=== PATIENT | female | born 1970 ===

== ENCOUNTER 2018-07-19 06:05 | Inpatient (IN) | payer MEDICAID ==
[2018-07-08 08:55] VITALS: BMI 31.6
[2018-07-19] MEDS ORDERED: Midazolam 2 MG/2 ML VIAL ONE (07:27)
[2018-07-19] MEDS ORDERED: Propofol 10 mg/ml Inj (20 ML) ONE (07:27)
[2018-07-19] MEDS ORDERED: Lidocaine Hydrochloride 20 ML INJ ONE (07:35)
[2018-07-19] MEDS ORDERED: Bupivacaine 0.25% 20 ML INJ IJ ONE (07:36)
[2018-07-19] MEDS: cefOXitin IV 2 gm in Dextrose 2 GM/50 ML BAG IVPB ONE ×2 (08:10→08:41)
[2018-07-19] MEDS ORDERED: ePHEDrine 50 mg/ml Inj ONE (09:05)
[2018-07-19] MEDS ORDERED: Rocuronium 10 mg/ml (5 ml) ONE ×2 (09:05→09:09)
[2018-07-19] MEDS ORDERED: Phenylephrine 10 mg/ml Inj ONE (09:05)
[2018-07-19] MEDS ORDERED: Succinylcholine Chloride 20 mg/ml Syr (5 ml) IV ONE (09:05)
--- NOTE | 2018-07-19 12:13 | PCM.SURG1 ---
Surgeon's Initial Post Op Note - Surgeon's Notes Surgeon: Ean Maintenance Mechanic Elevators: Garland PGY4 Type of Anesthesia: General Endo, Local Pre-Operative Diagnosis: Hiatal hernia Operative Findings: Prior gastric sleeve, hiatal hernia Post-Operative Diagnosis: same Operation Performed: laparoscopic hiatal hernia repair w. mesh pledgets Specimen/Specimens Removed: none Estimated Blood Loss: EBL {In ML}: 300 Blood Products Given: N/A Drains Used: Nghia Post-Op Condition: Good Date of Surgery/Procedure: 07/19/18 Time of Surgery/Procedure: 12:13
[2018-07-19] MEDS ORDERED: Lactated Ringer's 1,000 ML IV SCH (12:15)
[2018-07-19] MEDS: HYDROmorphone 0.5 mg/0.5 ml ISec IVP PRN ×5 (12:16→19:22)
[2018-07-19] MEDS: (Novolin R) Insulin Human Regular 100 units/ml vial SC SCH ×2 (17:12→23:23)
[2018-07-19] MEDS: Lactated Ringer's 1,000 ML IV SCH (19:24)
--- NOTE | 2018-07-19 21:32 | PCM.OP ---
Operative Report - Operative Report Date of Surgery/Procedure: 07/19/18 Time of Surgery/Procedure: 08:00 Surgeon: Kellie Mckoy MD Endocrinology Specialist: Luis Haque DO (PGY4 resident) Anesthesia/Sedation: General endotracheal; 1% lidocaine + 0.25% Marcain mix local anesthesia Pre-Operative Diagnosis: recurrent hiatal hernia. s/p laparoscopic sleeve gastrectomy and hiatal hernia repair. Morbid obesity. BMI 32 Post-Operative Diagnosis: recurrent hiatal hernia with anterior recurrence. s/ p laparoscopic sleeve gastrectomy and hiatal hernia repair. Morbid obesity. BMI 32 Indication for Surgery: This is a very nice woman who underwent prior laparoscopic sleeve gastrectomy and concomitant hiatal hernia repair at an OSH couple years ago. She has had dysphagia and post-prandial nausea vomiting for several months. Her work-up revealed a recurrent hiatal hernia consistent with her symptoms. Details of the HPI in clinical chart. The risks of surgery that includes leaks, bleeding, infections or injury, recurrence and need for open surgery have all been explained, and informed consent obtained Operative Findings: Anterior recurrence of hiatal hernia. No blow-out of previous posterior closure noted. Left mediastal hernia sac intimately adherent to left pleura and left pleura entered without any injury to left lung or hemodynamic changes. Large liver adherent to omentum overlying site of previous hiatal hernia repair and to superior aspect of both crura. Intact sleeve gastrectomy of normal size Procedure/Operation Description: PROCEDURE PERFORMED: 1. Laparoscopic, recurrent hiatal hernia repair with mesh pledgets. 2. Esophagogastroduodenoscopy. DETAILS OF PROCEDURE: The patient was brought to the operating room, placed in the supine position. 2g cefoxitin given within 30 minutes prior to incision. Sequential compression stockings placed for DVT prophylaxis. Small caliber rivas catheter placed. Abdominal hair removal with electrical clippers. Upper and lower body warming blankets placed to maintain body temperature. All pressure points padded. Arms were in neutral position at 80-degrees from the torso and all pressure points were padded. All trocar sites were preanesthetized with local anesthesia listed above. A #11 blade was used to make all skin incisions. A time-out was performed prior to incision. At 15 cm distal to the xiphoid along the midline, we made a transverse incision and entered the abdomen using a direct optical viewing device. Abdomen was insufflated to 15 mmHg using CO2. We placed a 5 mm trocar in the left subcostal area under direct visualization, and another 5 mm trocar on the right side of the abdomen laterally under direct visualization. Another 10 mm trocar was placed in the left mid subcostal region under vision. A small 5mm skin incison was made beneath the xiphoid and a nathoson liver retractor inserted and plaed under left liver lobe to expose hiatus. Omental attachments to liver and crura taken down with ligasure to expose borders of hiatus. We focused our attention to the hiatus. Short gastric vessels had previously been taken down during her sleeve gastrectomy. Omental attachements to the lateral and proximal stomach were taken down and traced to the base of the left ang. We then used blunt dissection to free up the entire hiatus so that the esophagus was encircled within the mady drain. The esophagus was dissected well into the mediastinum and freed circumferentially. Anterior hernia sac was reduced with hernia contents. The left mediastinum portion of hernia sac was adherent to the left pleura and despite meticulous dissection, the left pleura cavity was entered, without injury to the lung or any hemodynamic instability. Upper endoscopy was performed and used to confirm 3cm of intra-abdominal esophagus distal to GE junction. We used the gastroscope emersion test to make sure there were no leaks. Simple air insufflation opened the lower esophageal sphincter. We then closed the posterior hiatus with two, 0-silk sutures, and closed the anterior crura with another single 0-silk suture. Both sutures were with bioabsorbable pledgets. The hiatal closure was further reinforced with 0- barbed suture and came together without tension. Once this was done, we passed the gastroscope down the esophagus. The scope passed readily without any problems. There was no injury to the esophagus, air leaks, or bleeding. We evacuated all the air and removed the gastroscope under direct visualization. At this point, the mady drain was removed and liver retractor taken down. We scanned the abdominal cavity, which did not demonstrate any other abnormalities. There was a small 1-2cm superficial laceration of the edge of right lover lobe which was cauterized and hemostatic. There was no other bleeding. A 19Fr round diego drain was then advanced into the left anterior mediastinum through the hiatus under direct vision and brought out through the left lateral 5mm port site. We removed all the trocars under direct visualization. The pneumoperitoneum was evacuated. The skin incisions were closed using 4-0. Monocryl sutures in running subcuticular fashion. Dermabond glue was applied. The patient tolerated the procedure well and was extubated on the operating room table. The patient was transferred to the recovery room in stable condition. All sponge and instrument counts were correct. I was present for the entirety of the operation. Estimated Blood Loss: 200mL Complications: none Specimen: none Discharge & Condition: above
[2018-07-19] MEDS ORDERED: Lidocaine 5% Patch TD SCH (21:39)
[2018-07-19] MEDS: Lidocaine 5% Patch TD SCH (22:04)
[2018-07-20] MEDS: Lactated Ringer's 1,000 ML IV SCH ×4 (01:15→20:00)
[2018-07-20] MEDS: HYDROmorphone 0.5 mg/0.5 ml ISec IVP PRN ×4 (04:40→21:59)
[2018-07-20 06:52] LABS: BLOOD UREA NITROGEN 17 mg/dL (7-17); CALCIUM 8.6 mg/dl (8.6-10.4); GFR NON-AFRICAN AMERICAN > 60
[2018-07-20 06:54] LABS: BASO % 0.2 % (0.0-2.0); HEMOGLOBIN 9.7 g/dL (11.0-16.0); LYMPH # 1.3 K/uL (1.0-4.3); MEAN CELL VOLUME 85.1 fL (81.0-99.0); MEAN CORPUSCULAR HEMOGLOBIN 28.5 pg (27.0-31.0); MEAN CORPUSCULAR HGB CONC 33.5 g/dL (33.0-37.0); MEAN PLATELET VOLUME 8.2 fL (7.2-11.7); MONO # 1.2 K/uL (0.0-0.8); MONO % 6.3 % (0.0-10.0); NEUT # 16.3 K/uL (1.8-7.0); NEUT % 86.5 % (50.0-75.0); PLATELET COUNT 319 K/uL (130-400); RED CELL DISTRIBUTION WIDTH 14.8 % (11.5-14.5); WHITE BLOOD COUNT 18.8 K/uL (4.8-10.8)
[2018-07-20] MEDS ORDERED: Lactated Ringer's 500 ML IV ONE (07:00)
[2018-07-20] MEDS: (Novolin R) Insulin Human Regular 100 units/ml vial SC SCH ×4 (07:51→22:00)
[2018-07-20 08:24] LABS: BANDS 8 % (0-2); LYMPHOCYTE 5 % (20-40); MONOCYTE 5 % (0-10); NEUTROPHIL 82 % (50-75); PLATELET ESTIMATE NORMAL (NORMAL); TOTAL CELLS COUNTED 100
[2018-07-20] MEDS: Enoxaparin 40 mg Syringe SC SCH (09:16)
[2018-07-20] MEDS ORDERED: Lidocaine 5% Patch TD SCH (10:00)
[2018-07-20] MEDS ORDERED: Iohexol 240 200 ML ONE (10:08)
[2018-07-20] MEDS ORDERED: HYDROmorphone 0.5 mg/0.5 ml ISec IVP STA (13:43)
[2018-07-20] MEDS ORDERED: Albuterol-Ipratrop 3 mg / 0.5 (3 ml) UD INH PRN (14:51)
--- NOTE | 2018-07-20 14:59 | CP.PCM.PN ---
<Earnest Haque - Last Filed: 07/20/18 14:59> Subjective - Date & Time of Evaluation Date of Evaluation: 07/20/18 Time of Evaluation: 14:56 - Subjective Subjective: Surgery: Dr. Mckoy Pt seen and examined. No acute events overnight. has complaints of pain. Nausea , no vomiting. Objective - Vital Signs/Intake and Output Vital Signs (last 24 hours): Temp Pulse Resp BP Pulse Ox 98.4 F 74 18 134/69 99 07/20/18 08:15 07/20/18 08:48 07/20/18 08:15 07/20/18 08:15 07/20/18 08:15 Intake and Output: 07/20/18 07/20/18 06:59 18:59 Intake Total 2000 Output Total 588 Balance 1412 - Medications Medications: Current Medications Albuterol/Ipratropium (Duoneb 3 Mg/0.5 Mg (3 Ml) Ud) 3 ml INH RQ4 PRN PRN Reason: Shortness of Breath Diphenhydramine HCl (Benadryl) 25 mg IVP HS PRN PRN Reason: Insomnia Enoxaparin Sodium (Lovenox) 40 mg SC DAILY [facility] Last Admin: 07/20/18 09:16 Dose: 40 mg Famotidine (Pepcid) 40 mg IVP DAILY [facility] Last Admin: 07/20/18 09:16 Dose: 40 mg Hydromorphone/Sodium Chloride (Dilaudid Attorney General) 6 mg IV Q4H PRN; Protocol PRN Reason: Pain, moderate (4-7) Lactated Ringer's (Lactated Ringer's) 1,000 mls @ 125 mls/hr IV .Q8H [facility] Last Admin: 07/20/18 13:56 Dose: Not Given Piperacillin Sod/Tazobactam Sod (Zosyn 3.375 Gm Iv Premix) 3.375 gm in 50 mls @ 100 mls/hr IVPB Q6H [facility] PRN Reason: Protocol Stop: 07/21/18 15:01 Insulin Human Regular (Novolin R) 0 unit SC ACHS [facility] PRN Reason: Protocol Last Admin: 07/20/18 11:50 Dose: Not Given Ketorolac Tromethamine (Toradol) 30 mg IVP Q6 [facility] Stop: 07/21/18 12:01 Lidocaine (Lidoderm) 1 ea TD Q24H [facility] Last Admin: 07/19/18 22:04 Dose: 1 ea Metoclopramide HCl (Reglan) 10 mg IVP Q6H PRN PRN Reason: Nausea/Vomiting Ondansetron HCl (Zofran Inj) 4 mg IVP Q6H [facility] Last Admin: 07/20/18 12:16 Dose: 4 mg - Labs Labs: 07/20/18 06:34 07/20/18 06:34 - Constitutional Appears: Non-toxic, No Acute Distress - Head Exam Head Exam: ATRAUMATIC, NORMOCEPHALIC - Eye Exam Eye Exam: EOMI - ENT Exam ENT Exam: Mucous Membranes Moist - Neck Exam Neck Exam: Full ROM - Respiratory Exam Respiratory Exam: NORMAL BREATHING PATTERN. absent: Accessory Muscle Use, Respiratory Distress - GI/Abdominal Exam GI & Abdominal Exam: Soft, Tenderness (jody-incisional ). 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 -Nghia: 13cc/24hr, serosang, drain repositioned, Repeat CXR in AM -Will start CLD, ADAT to FLD, pt will need FLD for 2 weeks upon D/C -encourage OOB / Ambulation / IS use / PT -c/w GI/DVT ppx -d/w attending [facility] PGY4 <Kellie Mckoy - Last Filed: 07/20/18 17:02> Objective - Vital Signs/Intake and Output Vital Signs (last 24 hours): Temp Pulse Resp BP Pulse Ox 98.4 F 80 20 107/71 96 07/20/18 15:00 07/20/18 15:00 07/20/18 15:00 07/20/18 15:00 07/20/18 15:00 Intake and Output: 07/20/18 07/20/18 06:59 18:59 Intake Total 2000 1350 Output Total 588 15 Balance 1432 1335 - Medications Medications: Current Medications Albuterol/Ipratropium (Duoneb 3 Mg/0.5 Mg (3 Ml) Ud) 3 ml INH RQ4 PRN PRN Reason: Shortness of Breath Diphenhydramine HCl (Benadryl) 25 mg IVP HS PRN PRN Reason: Insomnia Enoxaparin Sodium (Lovenox) 40 mg SC DAILY [facility] Last Admin: 07/20/18 09:16 Dose: 40 mg Famotidine (Pepcid) 40 mg IVP DAILY [facility] Last Admin: 07/20/18 09:16 Dose: 40 mg Hydromorphone HCl (Dilaudid) 0.5 mg IVP Q2H PRN PRN Reason: Pain, moderate (4-7) Lactated Ringer's (Lactated Ringer's) 1,000 mls @ 125 mls/hr IV .Q8H [facility] Last Admin: 07/20/18 16:45 Dose: 125 mls/hr Piperacillin Sod/Tazobactam Sod (Zosyn 3.375 Gm Iv Premix) 3.375 gm in 50 mls @ 100 mls/hr IVPB Q6H [facility] PRN Reason: Protocol Stop: 07/21/18 16:01 Last Admin: 07/20/18 16:45 Dose: 100 mls/hr Insulin Human Regular (Novolin R) 0 unit SC ACHS [facility] PRN Reason: Protocol Last Admin: 07/20/18 11:50 Dose: Not Given Ketorolac Tromethamine (Toradol) 30 mg IVP Q6 [facility] Stop: 07/21/18 12:01 Lidocaine (Lidoderm) 1 ea TD Q24H [facility] Last Admin: 07/19/18 22:04 Dose: 1 ea Metoclopramide HCl (Reglan) 10 mg IVP Q6H PRN PRN Reason: Nausea/Vomiting Ondansetron HCl (Zofran Inj) 4 mg IVP Q6H [facility] Last Admin: 07/20/18 12:16 Dose: 4 mg - Labs Labs: 07/20/18 06:34 07/20/18 06:34 Assessment and Plan - Assessment and Plan (Free Text) Plan: Seen and examined. Agree with above. UGI contrast study negative. Start CLD. Pain control. Pulmonary toilet. OOB ambulate in henry. Nutrition to see re: post- bariatric diet teaching and full liquid diet on discharge.
--- NOTE | 2018-07-20 15:21 | RAD ---
Date of service: 07/20/2018 HISTORY: Dysphagia. COMPARISON: Comparison made with prior CT scan of the abdomen pelvis dated 06/03/2018. TECHNIQUE: Limited single-contrast esophagram/ GI series performed without Omnipaque 240 water-soluble contrast material. . . FINDINGS: Patient tolerated procedure well. ESOPHAGUS: Esophageal mucosa appeared preserved. No evidence of stricture or mass lesion. HIATAL HERNIA: Postoperative changes of hiatal hernia repair. No evidence of residual hiatal hernia. . No evidence of contrast extravasation seen. GASTROESOPHAGEAL REFLUX: Not demonstrated. Postoperative changes OTHER FINDINGS: Postoperative changes of gastric sleeve again noted IMPRESSION: Postoperative repair of hiatal hernia and postoperative changes of gastric sleeve. No evidence of residual hiatal hernia. No evidence of contrast extravasation
[2018-07-20] MEDS: Piperacill/Tazo 3.375gm in Dex 3.375 GM/50 ML BAG IVPB SCH ×2 (16:45→22:02)
[2018-07-20] MEDS: Lidocaine 5% Patch TD SCH (21:58)
[2018-07-20] MEDS: DiphenhydrAMINE 50 mg/ml Inj IVP PRN (22:00)
[2018-07-21] MEDS: Lactated Ringer's 1,000 ML IV SCH (02:30)
[2018-07-21] MEDS: Piperacill/Tazo 3.375gm in Dex 3.375 GM/50 ML BAG IVPB SCH ×3 (04:44→16:02)
[2018-07-21] MEDS: HYDROmorphone 0.5 mg/0.5 ml ISec IVP PRN (04:59)
--- NOTE | 2018-07-21 07:12 | CP.PCM.PN ---
Subjective - Date & Time of Evaluation Date of Evaluation: 07/21/18 Time of Evaluation: 07:10 - Subjective Subjective: Surgery: Dr. Mckoy Pt seen and examined. She has complaints of incisional pain and head ache. She states that she had increased abd pain following CLD, but denies N/V. She has been ambulating. She has not had flatus/BM. Objective - Vital Signs/Intake and Output Vital Signs (last 24 hours): Temp Pulse Resp BP Pulse Ox 98.5 F 81 20 133/77 99 07/21/18 04:00 07/21/18 04:00 07/21/18 04:00 07/21/18 04:00 07/21/18 04:00 Intake and Output: 07/21/18 07/21/18 06:59 18:59 Intake Total 2074 Output Total Balance 2067 - Medications Medications: Current Medications Acetaminophen (Tylenol 325mg Tab) 650 mg PO Q6 PRN PRN Reason: Headache Albuterol/Ipratropium (Duoneb 3 Mg/0.5 Mg (3 Ml) Ud) 3 ml INH RQ4 PRN PRN Reason: Shortness of Breath Diphenhydramine HCl (Benadryl) 25 mg IVP HS PRN PRN Reason: Insomnia Last Admin: 07/20/18 22:00 Dose: 25 mg Enoxaparin Sodium (Lovenox) 40 mg SC DAILY [facility] Last Admin: 07/20/18 09:16 Dose: 40 mg Hydromorphone HCl (Dilaudid) 0.5 mg IVP Q2H PRN PRN Reason: Pain, moderate (4-7) Last Admin: 07/21/18 04:59 Dose: 0.5 mg Lactated Ringer's (Lactated Ringer's) 1,000 mls @ 125 mls/hr IV .Q8H [facility] Last Admin: 07/21/18 02:30 Dose: 125 mls/hr Piperacillin Sod/Tazobactam Sod (Zosyn 3.375 Gm Iv Premix) 3.375 gm in 50 mls @ 100 mls/hr IVPB Q6H [facility] PRN Reason: Protocol Stop: 07/21/18 16:01 Last Admin: 07/21/18 04:44 Dose: 100 mls/hr Insulin Human Regular (Novolin R) 0 unit SC ACHS [facility] PRN Reason: Protocol Last Admin: 07/20/18 22:00 Dose: Not Given Ketorolac Tromethamine (Toradol) 30 mg IVP Q6 [facility] Stop: 07/21/18 12:01 Last Admin: 07/21/18 06:20 Dose: Not Given Lidocaine (Lidoderm) 1 ea TD Q24H [facility] Last Admin: 07/20/18 21:58 Dose: 1 ea Metoclopramide HCl (Reglan) 10 mg IVP Q6H PRN PRN Reason: Nausea/Vomiting Ondansetron HCl (Zofran Inj) 4 mg IVP Q6H [facility] Last Admin: 07/21/18 06:17 Dose: 4 mg Pantoprazole Sodium (Protonix Ec Tab) 40 mg PO DAILY [facility] - Labs Labs: 07/20/18 06:34 07/20/18 06:34 - Constitutional Appears: Non-toxic, No Acute Distress - Head Exam Head Exam: ATRAUMATIC, NORMOCEPHALIC - Eye Exam Eye Exam: EOMI - ENT Exam ENT Exam: Mucous Membranes Moist - Neck Exam Neck Exam: Full ROM - Respiratory Exam Respiratory Exam: NORMAL BREATHING PATTERN. absent: Accessory Muscle Use, Respiratory Distress - GI/Abdominal Exam GI & Abdominal Exam: Soft, Tenderness (per-incisional). absent: Distended, Firm , Guarding, Rigid, Rebound Additional comments: L diego in place - Extremities Exam Extremities Exam: absent: Calf Tenderness, Pedal Edema - Neurological Exam Neurological Exam: Alert, Oriented x3 Assessment and Plan - Assessment and Plan (Free Text) Assessment: 48F POD#2 Laparoscopic hiatal hernia repair -AM labs/CXR pending, will follow up results -Micheal cortez: 7cc/12hr serosang, will continue to monitor -Will keep on CLD diet for now, will advance to FLD in upcoming days, pt will need FLD for 2 weeks outpt upon D/C -Dietary to see patient this AM, will follow up on recommendations -Tylenol for TOMAS -Encourage OOB/Ambulation/IS use -c/w GI/DVT ppx -will d/w attending Zemitchellitis PGY4
[2018-07-21] MEDS ORDERED: Acetaminophen 650mg/20.3ml solution UD PO PRN (07:22)
[2018-07-21] MEDS: (Novolin R) Insulin Human Regular 100 units/ml vial SC SCH ×4 (08:05→21:33)
[2018-07-21 08:26] LABS: HEMOGLOBIN 9.1 g/dL (11.0-16.0); MEAN CELL VOLUME 85.6 fL (81.0-99.0); MEAN CORPUSCULAR HEMOGLOBIN 28.5 pg (27.0-31.0); MEAN CORPUSCULAR HGB CONC 33.2 g/dL (33.0-37.0); MEAN PLATELET VOLUME 8.6 fL (7.2-11.7); RBC 3.19 Mil/uL (3.80-5.20); RED CELL DISTRIBUTION WIDTH 14.6 % (11.5-14.5)
[2018-07-21 08:50] LABS: BLOOD UREA NITROGEN 13 mg/dL (7-17); CALCIUM 8.4 mg/dl (8.6-10.4); GFR NON-AFRICAN AMERICAN > 60
[2018-07-21] MEDS: Potassium Ch 20mEq in D5-1/2NS 1,000 ML IV SCH ×3 (09:08→22:08)
--- NOTE | 2018-07-21 10:36 | RAD ---
Date of service: 07/21/2018 HISTORY: comparison COMPARISON: No prior. FINDINGS: LUNGS: Poor inspiration with low lung volumes, crowded bronchovascular markings and bibasilar atelectasis with suspected small bilateral effusions right larger than left PLEURA: As above. No pneumothorax apparent. CARDIOVASCULAR: Heart size within range of normal OSSEOUS STRUCTURES: No significant abnormalities. VISUALIZED UPPER ABDOMEN: Normal. OTHER FINDINGS: None. IMPRESSION: Poor inspiration with low lung volumes, crowded bronchovascular markings and bibasilar atelectasis with suspected small bilateral effusions right larger than left
[2018-07-21] MEDS: Enoxaparin 40 mg Syringe SC SCH (10:39)
[2018-07-21] MEDS: Pantoprazole 40 mg EC Tab PO SCH (10:39)
[2018-07-21] MEDS: Oxycodone/Acetaminophen 5/325 mg Tab PO PRN ×2 (19:03→22:38)
[2018-07-21] MEDS: Piperacillin/Tazobact 3.375 GM in Sodium Chloride 100 ML IVPB SCH (19:11)
[2018-07-21] MEDS: Albuterol-Ipratrop 3 mg / 0.5 (3 ml) UD INH SCH (20:34)
[2018-07-21] MEDS: Lidocaine 5% Patch TD SCH (22:01)
[2018-07-21] MEDS: DiphenhydrAMINE 50 mg/ml Inj IVP PRN (22:10)
[2018-07-22] MEDS: Piperacillin/Tazobact 3.375 GM in Sodium Chloride 100 ML IVPB SCH ×4 (00:10→19:35)
[2018-07-22 00:33] VITALS: RESP 20
[2018-07-22] MEDS: Albuterol-Ipratrop 3 mg / 0.5 (3 ml) UD INH SCH ×4 (02:57→19:53)
[2018-07-22] MEDS ORDERED: Albumin Human 25% (12.5 gm/50 ml) IV ONE (06:00)
[2018-07-22] MEDS: (Novolin R) Insulin Human Regular 100 units/ml vial SC SCH ×4 (08:08→22:24)
[2018-07-22 08:13] LABS: HEMOGLOBIN 9.6 g/dL (11.0-16.0); MEAN CELL VOLUME 85.5 fL (81.0-99.0); MEAN CORPUSCULAR HEMOGLOBIN 28.9 pg (27.0-31.0); MEAN CORPUSCULAR HGB CONC 33.8 g/dL (33.0-37.0); MEAN PLATELET VOLUME 8.8 fL (7.2-11.7); RBC 3.31 Mil/uL (3.80-5.20); RED CELL DISTRIBUTION WIDTH 14.7 % (11.5-14.5); WHITE BLOOD COUNT 9.5 K/uL (4.8-10.8)
[2018-07-22 09:10] LABS: ALB/GLOB RATIO 1.1 (1.0-2.1); ALBUMIN 3.6 g/dL (3.5-5.0); BLOOD UREA NITROGEN 8 mg/dL (7-17); CALCIUM 8.7 mg/dl (8.6-10.4); GFR NON-AFRICAN AMERICAN > 60
[2018-07-22 09:26] LABS: AST/SGOT 361 U/L (14-36)
[2018-07-22 09:27] LABS: ALT/SGPT 593 U/L (9-52)
[2018-07-22] MEDS: Pantoprazole 40 mg EC Tab PO SCH (09:40)
--- NOTE | 2018-07-22 10:00 | CP.PCM.PN ---
Subjective - Date & Time of Evaluation Date of Evaluation: 07/22/18 Time of Evaluation: 09:57 - Subjective Subjective: Surgery: Dr. Mckoy Pt seen and examined. Tolerating jello, however liquids cause her pain and nausea, no vomiting. TOMAS is mildly improved. Objective - Vital Signs/Intake and Output Vital Signs (last 24 hours): Temp Pulse Resp BP Pulse Ox 98.7 F 76 20 121/84 96 07/22/18 09:29 07/22/18 09:29 07/22/18 09:29 07/22/18 09:29 07/22/18 09:29 Intake and Output: 07/22/18 07/22/18 06:59 18:59 Intake Total 940 Balance 940 - Medications Medications: Current Medications Albuterol/Ipratropium (Duoneb 3 Mg/0.5 Mg (3 Ml) Ud) 3 ml INH RQ6 [facility] Last Admin: 07/22/18 08:32 Dose: Not Given Diphenhydramine HCl (Benadryl) 25 mg IVP HS PRN PRN Reason: Insomnia Last Admin: 07/21/18 22:10 Dose: 25 mg Potassium Chloride/Dextrose/Sod Cl (Potassium Chl 20 Meq In D5-1/2ns) 1,000 mls @ 100 mls/hr IV .Q10H [facility] Last Admin: 07/21/18 22:08 Dose: 100 mls/hr Piperacillin Sod/Tazobactam (Sod 3.375 gm/ Sodium Chloride) 100 mls @ 200 mls/ hr IVPB Q6H [facility] PRN Reason: Protocol Last Admin: 07/22/18 08:00 Dose: 200 mls/hr Insulin Human Regular (Novolin R) 0 unit SC ACHS [facility] PRN Reason: Protocol Last Admin: 07/22/18 08:08 Dose: Not Given Lidocaine (Lidoderm) 1 ea TD Q24H [facility] Last Admin: 07/21/18 22:01 Dose: 1 ea Metoclopramide HCl (Reglan) 10 mg IVP Q6H PRN PRN Reason: Nausea/Vomiting Last Admin: 07/21/18 08:41 Dose: 10 mg Ondansetron HCl (Zofran Inj) 4 mg IVP Q6H [facility] Last Admin: 07/22/18 06:15 Dose: 4 mg Oxycodone/Acetaminophen (Percocet 5/325 Mg Tab) 2 tab PO Q6H PRN PRN Reason: Pain, moderate (4-7) Stop: 07/24/18 18:36 Pantoprazole Sodium (Protonix Ec Tab) 40 mg PO DAILY [facility] Last Admin: 07/22/18 09:40 Dose: 40 mg - Labs Labs: 07/22/18 08:06 07/22/18 08:06 - Constitutional Appears: Non-toxic, No Acute Distress - Head Exam Head Exam: ATRAUMATIC, NORMOCEPHALIC - Eye Exam Eye Exam: EOMI - ENT Exam ENT Exam: Mucous Membranes Moist - Neck Exam Neck Exam: Full ROM - Respiratory Exam Respiratory Exam: NORMAL BREATHING PATTERN. absent: Accessory Muscle Use, Respiratory Distress - GI/Abdominal Exam GI & Abdominal Exam: Soft. absent: Distended, Firm, Guarding, Tenderness, Rebound Additional comments: Incisions C/D/I, L diego in place - Extremities Exam Extremities Exam: absent: Calf Tenderness, Pedal Edema - Neurological Exam Neurological Exam: Alert, Awake, Oriented x3 Assessment and Plan - Assessment and Plan (Free Text) Assessment: 48F POD#3 Laparoscopic hiatal hernia repair -Diego 4cc/24hr, serosang, continue to monitor -F/U AM CXR -c/w CLD -D/C morphine, percocet for pain -c/w clemente adamson -encourage OOB/ambulation/IS -GI/DVT ppx -d/w attending Zemaitis PGY4
--- NOTE | 2018-07-22 10:07 | RAD ---
Date of service: 07/22/2018 HISTORY: s/p hiatal hernia repair COMPARISON: No prior. TECHNIQUE: Chest PA and lateral FINDINGS: LUNGS: Mild pulmonary venous congestive changes with bilateral lower lobe alveolar-type infiltrates and bilateral effusions. PLEURA: As above. No pneumothorax apparent. CARDIOVASCULAR: Normal. OSSEOUS STRUCTURES: No significant abnormalities. VISUALIZED UPPER ABDOMEN: Normal. OTHER FINDINGS: None. IMPRESSION: Mild pulmonary venous congestive changes with bilateral lower lobe alveolar-type infiltrates and bilateral effusions.
[2018-07-22] MEDS: Oxycodone/Acetaminophen 5/325 mg Tab PO PRN ×2 (11:33→17:34)
[2018-07-22] MEDS: Potassium Ch 20mEq in D5-1/2NS 1,000 ML IV SCH (14:09)
[2018-07-22] MEDS: Lidocaine 5% Patch TD SCH (22:00)
[2018-07-23] MEDS: Oxycodone/Acetaminophen 5/325 mg Tab PO PRN ×3 (00:03→12:27)
[2018-07-23] MEDS: Potassium Ch 20mEq in D5-1/2NS 1,000 ML IV SCH ×3 (01:00→21:59)
[2018-07-23] MEDS: Albuterol-Ipratrop 3 mg / 0.5 (3 ml) UD INH SCH ×4 (01:19→20:16)
[2018-07-23 06:42] LABS: HEMOGLOBIN 8.8 g/dL (11.0-16.0); MEAN CELL VOLUME 85.4 fL (81.0-99.0); MEAN CORPUSCULAR HGB CONC 32.8 g/dL (33.0-37.0); MEAN PLATELET VOLUME 8.5 fL (7.2-11.7); RBC 3.15 Mil/uL (3.80-5.20); RED CELL DISTRIBUTION WIDTH 14.9 % (11.5-14.5); WHITE BLOOD COUNT 7.7 K/uL (4.8-10.8)
[2018-07-23 06:50] LABS: ALB/GLOB RATIO 1.2 (1.0-2.1); ALBUMIN 3.1 g/dL (3.5-5.0); ALT/SGPT 380 U/L (9-52); AST/SGOT 123 U/L (14-36); BLOOD UREA NITROGEN 6 mg/dL (7-17); CALCIUM 7.7 mg/dl (8.6-10.4); GFR NON-AFRICAN AMERICAN > 60
[2018-07-23] MEDS: (Novolin R) Insulin Human Regular 100 units/ml vial SC SCH ×4 (07:31→21:58)
[2018-07-23] MEDS: Pantoprazole 40 mg EC Tab PO SCH (09:41)
--- NOTE | 2018-07-23 12:23 | CP.PCM.PN ---
Subjective - Date & Time of Evaluation Date of Evaluation: 07/23/18 Time of Evaluation: 06:40 - Subjective Subjective: General Surgery progress note for Dr. Mckoy Patient seen and examined at bedside this AM. Reports headache and nausea with the headache, but states that abdominal pain has improved. Is tolerating her CLD and passing gas. Patient had a bowel movement yesterday. Objective - Vital Signs/Intake and Output Vital Signs (last 24 hours): Temp Pulse Resp BP Pulse Ox 98.3 F 61 20 145/86 96 07/23/18 07:50 07/23/18 08:00 07/23/18 07:50 07/23/18 11:32 07/23/18 07:50 Intake and Output: 07/23/18 07/23/18 06:59 18:59 Intake Total 1050 Balance 1050 - Medications Medications: Current Medications Albuterol/Ipratropium (Duoneb 3 Mg/0.5 Mg (3 Ml) Ud) 3 ml INH RQ6 [facility] Last Admin: 07/23/18 08:00 Dose: Not Given Diphenhydramine HCl (Benadryl) 25 mg IVP HS PRN PRN Reason: Insomnia Last Admin: 07/21/18 22:10 Dose: 25 mg Enalapril Maleate (Vasotec) 5 mg PO DAILY [facility] Last Admin: 07/23/18 11:32 Dose: 5 mg Hydrochlorothiazide (Microzide) 12.5 mg PO DAILY [facility] Last Admin: 07/23/18 10:24 Dose: 12.5 mg Potassium Chloride/Dextrose/Sod Cl (Potassium Chl 20 Meq In D5-1/2ns) 1,000 mls @ 100 mls/hr IV .Q10H [facility] Last Admin: 07/23/18 11:32 Dose: 100 mls/hr Insulin Human Regular (Novolin R) 0 unit SC ACHS [facility] PRN Reason: Protocol Last Admin: 07/23/18 11:57 Dose: Not Given Lidocaine (Lidoderm) 1 ea TD Q24H [facility] Last Admin: 07/22/18 22:00 Dose: 1 ea Metoclopramide HCl (Reglan) 10 mg IVP Q6H PRN PRN Reason: Nausea/Vomiting Last Admin: 07/23/18 04:18 Dose: 10 mg Ondansetron HCl (Zofran Inj) 4 mg IVP Q6H [facility] Last Admin: 07/23/18 11:32 Dose: 4 mg Oxycodone/Acetaminophen (Percocet 5/325 Mg Tab) 2 tab PO Q6H PRN PRN Reason: Pain, moderate (4-7) Stop: 07/24/18 18:36 Last Admin: 07/23/18 06:49 Dose: 2 tab Pantoprazole Sodium (Protonix Ec Tab) 40 mg PO DAILY [facility] Last Admin: 07/23/18 09:41 Dose: 40 mg - Labs Labs: 07/23/18 06:30 07/23/18 06:30 - Constitutional Appears: Well, Non-toxic, No Acute Distress - Head Exam Head Exam: ATRAUMATIC, NORMOCEPHALIC - Eye Exam Eye Exam: Normal appearance. absent: Conjunctival injection, Scleral icterus - ENT Exam ENT Exam: Mucous Membranes Moist, Normal Oropharynx - Respiratory Exam Respiratory Exam: NORMAL BREATHING PATTERN. absent: Accessory Muscle Use, Respiratory Distress - Cardiovascular Exam Cardiovascular Exam: RRR - GI/Abdominal Exam GI & Abdominal Exam: Soft, Tenderness (epigastric tenderness to palpation). absent: Distended, Rebound Additional comments: surgical incisions healing well, dressing over drain with no saturation, skin well approximated - Extremities Exam Extremities Exam: absent: Calf Tenderness, Pedal Edema, Tenderness - Neurological Exam Neurological Exam: Alert, Awake, Oriented x3 - Psychiatric Exam Psychiatric exam: Normal Affect, Normal Mood - Skin Skin Exam: Dry, Normal Color, Warm Assessment and Plan - Assessment and Plan (Free Text) Assessment: 48F POD#4 s/p laparoscopic hiatal hernia repair with mesh Plan: Continue to monitor CBC ad CMP and replete electrolytes as needed Monitor intake and output strictly Advance to VTD with no carbonated beverages today--monitor tolerance CRUSHED PO medications ok Encourage ambulation with PT, out of bed to chair daily Per physical therapy evaluation, patient will need home PT as an outpatient-- will discuss with case management Will restart home HTN medications Discussed with Dr. Ean Love, [id number]
[2018-07-23] MEDS ORDERED: oxyCODONE 5 mg Immediate Release Tab PO PRN (12:32)
[2018-07-23] MEDS: oxyCODONE 10 mg Immediate Release Tab PO PRN ×2 (16:11→22:00)
[2018-07-23] MEDS: Lidocaine 5% Patch TD SCH (21:58)
[2018-07-24] MEDS: Albuterol-Ipratrop 3 mg / 0.5 (3 ml) UD INH SCH ×4 (01:31→20:49)
[2018-07-24] MEDS: oxyCODONE 10 mg Immediate Release Tab PO PRN ×2 (03:57→18:06)
[2018-07-24] MEDS: Potassium Ch 20mEq in D5-1/2NS 1,000 ML IV SCH ×3 (06:17→17:35)
[2018-07-24 07:25] LABS: HEMOGLOBIN 9.8 g/dL (11.0-16.0); MEAN CELL VOLUME 85.8 fL (81.0-99.0); MEAN CORPUSCULAR HEMOGLOBIN 28.6 pg (27.0-31.0); MEAN CORPUSCULAR HGB CONC 33.4 g/dL (33.0-37.0); MEAN PLATELET VOLUME 8.1 fL (7.2-11.7); RBC 3.41 Mil/uL (3.80-5.20); RED CELL DISTRIBUTION WIDTH 14.9 % (11.5-14.5); WHITE BLOOD COUNT 8.4 K/uL (4.8-10.8)
[2018-07-24 07:56] LABS: ALB/GLOB RATIO 1.1 (1.0-2.1); ALBUMIN 3.4 g/dL (3.5-5.0); ALT/SGPT 271 U/L (9-52); AST/SGOT 74 U/L (14-36); BLOOD UREA NITROGEN 3 mg/dL (7-17); CALCIUM 8.6 mg/dl (8.6-10.4); GFR NON-AFRICAN AMERICAN > 60
[2018-07-24] MEDS: (Novolin R) Insulin Human Regular 100 units/ml vial SC SCH ×4 (07:56→22:09)
--- NOTE | 2018-07-24 09:04 | CP.PCM.PN ---
Subjective - Date & Time of Evaluation Date of Evaluation: 07/24/18 Time of Evaluation: 09:01 - Subjective Subjective: Surgery: Dr. Mckoy Pt seen and examined. Pt has persistent TOMAS. She reports chest discomfort, SOB, and productive cough. She denies palpitations. She had nausea and 2 episodes of clear emesis overnight. She has worsening epigastric pain with swallowing. She also had blood in her urine this morning. Objective - Vital Signs/Intake and Output Vital Signs (last 24 hours): Temp Pulse Resp BP Pulse Ox 98.7 F 55 L 20 144/86 97 07/24/18 05:13 07/24/18 08:31 07/24/18 05:13 07/24/18 05:13 07/24/18 05:13 Intake and Output: 07/24/18 07/24/18 06:59 18:59 Intake Total 1720 Output Total 600 Balance 1120 - Medications Medications: Current Medications Acetaminophen (Tylenol 325mg Tab) 650 mg PO Q6 PRN PRN Reason: Headache or pain, mild Last Admin: 07/24/18 01:33 Dose: 650 mg Albuterol/Ipratropium (Duoneb 3 Mg/0.5 Mg (3 Ml) Ud) 3 ml INH RQ6 [facility] Last Admin: 07/24/18 08:05 Dose: Not Given Diphenhydramine HCl (Benadryl) 25 mg IVP HS PRN PRN Reason: Insomnia Last Admin: 07/21/18 22:10 Dose: 25 mg Enalapril Maleate (Vasotec) 5 mg PO DAILY [facility] Last Admin: 07/23/18 11:32 Dose: 5 mg Hydrochlorothiazide (Microzide) 12.5 mg PO DAILY [facility] Last Admin: 07/23/18 10:24 Dose: 12.5 mg Potassium Chloride/Dextrose/Sod Cl (Potassium Chl 20 Meq In D5-1/2ns) 1,000 mls @ 100 mls/hr IV .Q10H [facility] Last Admin: 07/24/18 06:17 Dose: 100 mls/hr Insulin Human Regular (Novolin R) 0 unit SC ACHS [facility] PRN Reason: Protocol Last Admin: 07/24/18 07:56 Dose: Not Given Lidocaine (Lidoderm) 1 ea TD Q24H [facility] Last Admin: 07/23/18 21:58 Dose: 1 ea Metoclopramide HCl (Reglan) 10 mg IVP Q6H PRN PRN Reason: Nausea/Vomiting Last Admin: 07/23/18 04:18 Dose: 10 mg Ondansetron HCl (Zofran Inj) 4 mg IVP Q6H [facility] Last Admin: 07/24/18 06:16 Dose: 4 mg Oxycodone HCl (Oxycodone Immediate Release Tab) 10 mg PO Q6 PRN PRN Reason: Pain, moderate (4-7) Last Admin: 07/24/18 03:57 Dose: 10 mg Pantoprazole Sodium (Protonix Ec Tab) 40 mg PO DAILY [facility] Last Admin: 07/23/18 09:41 Dose: 40 mg - Labs Labs: 07/24/18 07:14 07/24/18 07:14 - Constitutional Appears: Non-toxic, Other (uncomfortable) - Head Exam Head Exam: ATRAUMATIC, NORMOCEPHALIC - Eye Exam Eye Exam: EOMI - ENT Exam ENT Exam: Mucous Membranes Moist - Neck Exam Neck Exam: Full ROM - Respiratory Exam Respiratory Exam: NORMAL BREATHING PATTERN. absent: Accessory Muscle Use, Respiratory Distress - GI/Abdominal Exam GI & Abdominal Exam: Soft, Tenderness (jody-incisional). absent: Distended, Firm, Guarding, Rigid, Rebound - Extremities Exam Extremities Exam: absent: Calf Tenderness, Pedal Edema - Neurological Exam Neurological Exam: Alert, Awake, Oriented x3 Assessment and Plan - Assessment and Plan (Free Text) Assessment: 48F POD#5 s/p laparoscopic hiatal hernia repair w. worsening pain -NPO -IVF -CT C/A/P w. PO/IV contrast -UA and culture -Daily labs -Encourage OOB / Ambulation /IS use -GI ppx -d/w attending Zemaitis PGY4
[2018-07-24 11:39] LABS: SQUAMOUS EPITHIAL 1 /hpf (0-5); URINE BACTERIA RARE (<OCC)
[2018-07-24 11:54] LABS: URINE BILIRUBIN NEGATIVE (NEGATIVE); URINE BLOOD 3+ (NEGATIVE); URINE CLARITY Clear (Clear); URINE COLOR Yellow (YELLOW); URINE GLUCOSE (UA) NORMAL (Normal); URINE LEUKOCYTE ESTERASE NEG Leu/uL (Negative); URINE PROTEIN NEGATIVE (NEGATIVE); URINE UROBILINOGEN NORMAL mg/dL (0.2-1.0)
[2018-07-24] MEDS ORDERED: Iohexol 240 (50 ml) PO ONE (12:00)
[2018-07-24] MEDS ORDERED: Iohexol 300 100 ML IJ ONE (13:26)
--- NOTE | 2018-07-24 15:54 | CT ---
Date of service: 07/24/2018 PROCEDURE: CT Chest with contrast (Pulmonary Angiogram) HISTORY: CP COMPARISON: None available. TECHNIQUE: Axial computed tomography images were obtained of the chest in the pulmonary arterial phase of enhancement. Coronal and sagittal reformatted images were created and reviewed. Intravenous contrast dose: Omnipaque 300, 100 cc. Radiation dose: Total exam DLP = 435.96 mGy-cm. This CT exam was performed using one or more of the following dose reduction techniques: Automated exposure control, adjustment of the mA and/or kV according to patient size, and/or use of iterative reconstruction technique. FINDINGS: PULMONARY ARTERIES: Unremarkable. No pulmonary embolism. AORTA: No acute findings. No thoracic aortic aneurysm. LUNGS: Bibasilar dependent atelectasis identified as well as limited compression atelectasis affecting the lower lobes predominantly. Trace dependent atelectasis affects the right middle lobe and lingula. Central airways are clear. No definitive mass identified within aerated pulmonary parenchyma. PLEURAL SPACES: Mild bilateral pleural effusions. No pneumothorax. Unremarkable thoracic inlet. HEART: Limited pulmonary vascular congestion. No interstitial changes to indicate interstitial edema however. No cardiomegaly. No significant pericardial effusion. LYMPH NODES: No lymphadenopathy. BONES, CHEST WALL: Unremarkable. No fracture or destructive lesion OTHER FINDINGS: Postoperative gastric changes. IMPRESSION: Mild bilateral pleural effusions are identified exerting compression atelectasis at the bilateral lower lobes. No pneumothorax bilaterally. No CT evidence to suggest pulmonary embolus. Borderline pulmonary vascular congestion.
--- NOTE | 2018-07-24 16:07 | CT ---
Date of service: 07/24/2018 PROCEDURE: CT Abdomen and Pelvis without intravenous contrast HISTORY: s/p hiatal hernia repair COMPARISON: None. TECHNIQUE: Helical CT of the abdomen and pelvis was performed following oral and dynamic intravenous contrast administration. The same iodinated contrast dose was performed for both the chest and abdomen pelvis CTs performed today with both studies performed concurrently. A 2nd intravenous contrast administration was not performed. Contrast dose: Omnipaque 300, 100 cc Radiation dose: Total exam DLP = 818.82 mGy-cm. This CT exam was performed using one or more of the following dose reduction techniques: Automated exposure control, adjustment of the mA and/or kV according to patient size, and/or use of iterative reconstruction technique. FINDINGS: LIVER: Lucency at the left lobe liver seen laterally the pattern may reflect focal fatty infiltration. This area appears somewhat more broadly affected in chest CT angiogram performed immediately prior to the abdomen pelvis CT. The liver otherwise appears unremarkable. Note is made of edema at the esophageal hiatus with trace fluid seen inferior to the esophageal hiatus medial to the gastrohepatic ligament superiorly. Surgical john are seen in the left upper quadrant abdomen as well as chain sutures related to the stomach and gastroesophageal junction region status post recent hiatal hernia repair apparently. No large hematoma appreciable or any free intra peritoneal gas. GALLBLADDER AND BILE DUCTS: Unremarkable. PANCREAS: Unremarkable. No gross lesion or ductal dilatation. SPLEEN: Unremarkable. ADRENALS: Unremarkable. No mass. KIDNEYS AND URETERS: Iodinated contrast material in the pelvocaliceal system and bilateral renal pelves and proximal ureters indicates renal excretion phase of iodinated contrast enhancement. No obstructive uropathy bilaterally. VASCULATURE: Unremarkable. No aortic aneurysm. BOWEL: Adequate opacification of large and small bowel loops by oral contrast material with no suspicious findings. No obstruction. No gross mural thickening. APPENDIX: Unremarkable. Normal appendix. PERITONEUM: Trace fluid is seen in the inferior left pericolic gutter at the left hemipelvis with trace fluid question in the dependent right adnexal compartment. LYMPH NODES: Unremarkable. No enlarged lymph nodes. BLADDER: Unremarkable. REPRODUCTIVE: Scattered poorly enhancing foci are seen scattered throughout the uterus suggestive of uterine fibroids. BONES: No acute fracture. OTHER FINDINGS: Chest findings as per separate CT angiogram chest 07/24/2018. IMPRESSION: 1. Postop changes seen in the esophageal hiatus/low medial left upper quadrant abdomen which trace fluid seen at the epigastric area hepatic ligament region, all felt to represent postoperative change. Suture material is seen at the stomach along the greater curvature approaching the esophageal hiatus as well. No large hematoma or prominent ascites. No free intra peritoneal gas collection. 2. Note is made of a well as a partially well-circumscribed lucency affecting left lobe liver in the same plane as the cardiac portion of the stomach. Although this may represent focal fatty infiltration, edema on a postoperative basis is not excluded. Clinical and CT follow-up are advised. 3. No obstruction overall contrast through the esophageal hiatus is appreciated as oral contrast opacifies large and small bowel loops adequately, diffusely.
[2018-07-24] MEDS: Lidocaine 5% Patch TD SCH (22:54)
[2018-07-25] MEDS: Potassium Ch 20mEq in D5-1/2NS 1,000 ML IV SCH ×4 (01:44→21:28)
[2018-07-25] MEDS: Albuterol-Ipratrop 3 mg / 0.5 (3 ml) UD INH SCH ×3 (01:50→19:31)
[2018-07-25 07:14] LABS: MEAN CELL VOLUME 84.7 fL (81.0-99.0); MEAN CORPUSCULAR HGB CONC 34.2 g/dL (33.0-37.0); MEAN PLATELET VOLUME 8.1 fL (7.2-11.7); RBC 3.44 Mil/uL (3.80-5.20); RED CELL DISTRIBUTION WIDTH 14.7 % (11.5-14.5); WHITE BLOOD COUNT 9.3 K/uL (4.8-10.8)
[2018-07-25 07:43] LABS: ALB/GLOB RATIO 1.1 (1.0-2.1); ALBUMIN 3.5 g/dL (3.5-5.0); ALT/SGPT 218 U/L (9-52); AST/SGOT 74 U/L (14-36); BLOOD UREA NITROGEN 2 mg/dL (7-17); CALCIUM 8.9 mg/dl (8.6-10.4); GFR NON-AFRICAN AMERICAN > 60
[2018-07-25] MEDS: (Novolin R) Insulin Human Regular 100 units/ml vial SC SCH ×4 (11:35→21:28)
--- NOTE | 2018-07-25 19:09 | CP.PCM.PN ---
Subjective - Date & Time of Evaluation Date of Evaluation: 07/25/18 Time of Evaluation: 06:15 - Subjective Subjective: Patient seen and examined. No acute events over night. Patient reports feeling better. States she no longer has a headache. Denies n/v. Complains of hematuria. Objective - Vital Signs/Intake and Output Vital Signs (last 24 hours): Temp Pulse Resp BP Pulse Ox 98.2 F 68 20 144/80 98 07/25/18 15:00 07/25/18 16:00 07/25/18 15:00 07/25/18 15:00 07/25/18 15:00 - Medications Medications: Current Medications Acetaminophen (Tylenol 325mg Tab) 650 mg PO Q6 PRN PRN Reason: Headache or pain, mild Last Admin: 07/24/18 01:33 Dose: 650 mg Albuterol/Ipratropium (Duoneb 3 Mg/0.5 Mg (3 Ml) Ud) 3 ml INH RQ6 [facility] Last Admin: 07/25/18 07:54 Dose: Not Given Diphenhydramine HCl (Benadryl) 25 mg IVP HS PRN PRN Reason: Insomnia Last Admin: 07/21/18 22:10 Dose: 25 mg Enalapril Maleate (Vasotec) 5 mg PO DAILY [facility] Last Admin: 07/25/18 10:10 Dose: 5 mg Hydrochlorothiazide (Microzide) 12.5 mg PO DAILY [facility] Last Admin: 07/25/18 10:10 Dose: 12.5 mg Potassium Chloride/Dextrose/Sod Cl (Potassium Chl 20 Meq In D5-1/2ns) 1,000 mls @ 120 mls/hr IV .Q8H20M [facility] Last Admin: 07/25/18 11:31 Dose: 120 mls/hr Insulin Human Regular (Novolin R) 0 unit SC ACHS [facility] PRN Reason: Protocol Last Admin: 07/25/18 16:55 Dose: Not Given Lidocaine (Lidoderm) 1 ea TD Q24H [facility] Last Admin: 07/24/18 22:54 Dose: 1 ea Metoclopramide HCl (Reglan) 10 mg IVP Q6H PRN PRN Reason: Nausea/Vomiting Last Admin: 07/25/18 10:10 Dose: 10 mg Ondansetron HCl (Zofran Inj) 4 mg IVP Q6H [facility] Last Admin: 07/25/18 17:38 Dose: 4 mg Oxycodone HCl (Oxycodone Immediate Release Tab) 10 mg PO Q6 PRN PRN Reason: Pain, moderate (4-7) Last Admin: 07/24/18 18:06 Dose: 10 mg Pantoprazole Sodium (Protonix Inj) 40 mg IVP DAILY [facility] Last Admin: 07/25/18 10:10 Dose: 40 mg - Labs Labs: 07/25/18 07:02 07/25/18 07:02 - Constitutional Appears: No Acute Distress - Head Exam Head Exam: NORMOCEPHALIC - Eye Exam Eye Exam: EOMI, Normal appearance - ENT Exam ENT Exam: Mucous Membranes Moist - Respiratory Exam Respiratory Exam: NORMAL BREATHING PATTERN - Cardiovascular Exam Cardiovascular Exam: +S1, +S2 - GI/Abdominal Exam GI & Abdominal Exam: Soft Additional comments: surgical incision sites c/d/i - Neurological Exam Neurological Exam: Alert, Awake, Oriented x3 - Psychiatric Exam Psychiatric exam: Normal Mood - Skin Skin Exam: Dry, Intact, Warm Assessment and Plan - Assessment and Plan (Free Text) Assessment: 48F POD#6 s/p laparoscopic hiatal hernia repair Plan: -Adv to clear liquid diet -IVF -F/u urine Cx -Daily labs -Encourage OOB / Ambulation /IS use -GI ppx -d/w Dr. Ean Seaman PGY3
[2018-07-25] MEDS: Lidocaine 5% Patch TD SCH (21:27)
[2018-07-26] MEDS: Albuterol-Ipratrop 3 mg / 0.5 (3 ml) UD INH SCH ×4 (02:52→19:45)
[2018-07-26] MEDS: Potassium Ch 20mEq in D5-1/2NS 1,000 ML IV SCH ×5 (02:59→22:20)
[2018-07-26 07:58] LABS: HEMOGLOBIN 10.1 g/dL (11.0-16.0); MEAN CELL VOLUME 84.9 fL (81.0-99.0); MEAN CORPUSCULAR HEMOGLOBIN 28.7 pg (27.0-31.0); MEAN CORPUSCULAR HGB CONC 33.8 g/dL (33.0-37.0); RBC 3.53 Mil/uL (3.80-5.20); RED CELL DISTRIBUTION WIDTH 14.9 % (11.5-14.5); WHITE BLOOD COUNT 8.4 K/uL (4.8-10.8)
[2018-07-26] MEDS: (Novolin R) Insulin Human Regular 100 units/ml vial SC SCH ×4 (10:03→21:40)
--- NOTE | 2018-07-26 16:44 | CP.PCM.DIS ---
Provider - Provider Date of Admission: 07/19/18 06:05 Attending physician: Kellie Mckoy MD Time Spent in preparation of Discharge (in minutes): 30 Diagnosis - Discharge Diagnosis (1) Hiatal hernia Status: Acute Hospital Course - Lab Results Lab Results: Micro Results 07/24/18 16:22 Urine,Clean Catch Urine Culture - Final No Growth (<1,000 CFU/ML) Most Recent Lab Values WBC 8.4 K/uL (4.8-10.8) 07/26/18 07:45 RBC 3.53 Mil/uL (3.80-5.20) L 07/26/18 07:45 Hgb 10.1 g/dL (11.0-16.0) L 07/26/18 07:45 Hct 30.0 % (34.0-47.0) L 07/26/18 07:45 MCV 84.9 fL (81.0-99.0) 07/26/18 07:45 MCH 28.7 pg (27.0-31.0) 07/26/18 07:45 MCHC 33.8 g/dL (33.0-37.0) 07/26/18 07:45 RDW 14.9 % (11.5-14.5) H 07/26/18 07:45 Plt Count 409 K/uL (130-400) H 07/26/18 07:45 MPV 8.0 fL (7.2-11.7) 07/26/18 07:45 Neut % (Auto) 86.5 % (50.0-75.0) H 07/20/18 06:34 Lymph % (Auto) 7.0 % (20.0-40.0) L 07/20/18 06:34 Sanborn % (Auto) 6.3 % (0.0-10.0) 07/20/18 06:34 Eos % (Auto) 0.0 % (0.0-4.0) 07/20/18 06:34 Baso % (Auto) 0.2 % (0.0-2.0) 07/20/18 06:34 Neut # (Auto) 16.3 K/uL (1.8-7.0) H 07/20/18 06:34 Lymph # (Auto) 1.3 K/uL (1.0-4.3) 07/20/18 06:34 Sanborn # (Auto) 1.2 K/uL (0.0-0.8) H 07/20/18 06:34 Eos # (Auto) 0.0 K/uL (0.0-0.7) 07/20/18 06:34 Baso # (Auto) 0.0 K/uL (0.0-0.2) 07/20/18 06:34 Neutrophils % (Manual) 82 % (50-75) H 07/20/18 06:34 Band Neutrophils % 8 % (0-2) H 07/20/18 06:34 Lymphocytes % (Manual) 5 % (20-40) L 07/20/18 06:34 Monocytes % (Manual) 5 % (0-10) 07/20/18 06:34 Platelet Estimate Normal (NORMAL) 07/20/18 06:34 RBC Morphology Normal 07/20/18 06:34 Sodium 140 mmol/L (132-148) 07/25/18 07:02 Potassium 3.8 mmol/L (3.6-5.2) 07/25/18 07:02 Chloride 104 mmol/L (98-107) 07/25/18 07:02 Carbon Dioxide 27 mmol/L (22-30) 07/25/18 07:02 Anion Gap 12 (10-20) 07/25/18 07:02 BUN 2 mg/dL (7-17) L 07/25/18 07:02 Creatinine 0.7 mg/dL (0.7-1.2) 07/25/18 07:02 Est GFR ( Amer) > 60 07/25/18 07:02 Est GFR (Non-Af Amer) > 60 07/25/18 07:02 POC Glucose (mg/dL) 127 mg/dL (65-110) H 07/26/18 12:41 Random Glucose 117 mg/dL (65-105) H 07/25/18 07:02 Calcium 8.9 mg/dl (8.6-10.4) 07/25/18 07:02 Phosphorus 4.3 mg/dL (2.5-4.5) 07/25/18 07:02 Magnesium 1.6 mg/dL (1.6-2.3) 07/25/18 07:02 Total Bilirubin 0.5 mg/dL (0.2-1.3) 07/25/18 07:02 AST 74 U/L (14-36) H 07/25/18 07:02 ALT 218 U/L (9-52) H 07/25/18 07:02 Alkaline Phosphatase 107 U/L (38-126) 07/25/18 07:02 Total Protein 6.7 g/dL (6.3-8.3) 07/25/18 07:02 Albumin 3.5 g/dL (3.5-5.0) 07/25/18 07:02 Globulin 3.2 gm/dL (2.2-3.9) 07/25/18 07:02 Albumin/Globulin Ratio 1.1 (1.0-2.1) 07/25/18 07:02 Urine Color Yellow (YELLOW) 07/24/18 11:09 Urine Clarity Clear (Clear) 07/24/18 11:09 Urine pH 7.0 (5.0-8.0) 07/24/18 11:09 Ur Specific Robert 1.004 (1.003-1.030) 07/24/18 11:09 Urine Protein Negative mg/dL (NEGATIVE) 07/24/18 11:09 Urine Glucose (UA) Normal mg/dL (Normal) 07/24/18 11:09 Urine Ketones Negative mg/dL (NEGATIVE) 07/24/18 11:09 Urine Blood 3+ (NEGATIVE) H 07/24/18 11:09 Urine Nitrate Negative (NEGATIVE) 07/24/18 11:09 Urine Bilirubin Negative (NEGATIVE) 07/24/18 11:09 Urine Urobilinogen Normal mg/dL (0.2-1.0) 07/24/18 11:09 Ur Leukocyte Esterase Neg Anmol/uL (Negative) 07/24/18 11:09 Urine RBC (Auto) 124 /hpf (0-3) H 07/24/18 11:09 Ur Squamous Epith Cells 1 /hpf (0-5) 07/24/18 11:09 Urine Bacteria Rare (<OCC) 07/24/18 11:09 - Hospital Course Hospital Course: 48F presented SDS for elective laparoscopic repair of hiatal hernia. Post-op, pt had issues with pain exacerbated by eating which is now resolved. She is currently tolerating diet. No N/V. She is ambulating without difficulty. She is clear for D/C from surgical standpoint. Discharge Exam - Head Exam Head Exam: NORMOCEPHALIC - Eye Exam Eye Exam: EOMI - ENT Exam ENT Exam: Mucous Membranes Moist - Neck Exam Neck exam: Full Rom - Respiratory Exam Respiratory Exam: NORMAL BREATHING PATTERN. absent: Accessory Muscle Use, Respiratory Distress - GI/Abdominal Exam GI & Abdominal Exam: Soft. absent: Distended, Firm, Guarding, Rebound, Rigid, Tenderness Additional comments: Incisions C/D/I - Neurological Exam Neurological exam: Alert, Oriented x3 - Psychiatric Exam Psychiatric exam: Normal Affect, Normal Mood - Skin Skin Exam: Dry, Normal Color, Warm Discharge Plan - Discharge Medications Prescriptions: oxyCODONE/Acetaminophen [Percocet 5/325 mg Tab] 1 ea PO Q4H PRN #28 tab PRN Reason: Pain, Moderate (4-7) - Follow Up Plan Condition: GOOD Disposition: HOME/ ROUTINE Patient education suggested?: Yes Additional Instructions: Full liquid diet 2 weeks, no carbonated berverages Follow up with Dr. Mckoy in 2 weeks Referrals: Kellie Mckoy MD [Staff Provider] -
[2018-07-26] MEDS: Lidocaine 5% Patch TD SCH (22:20)
[2018-07-27 00:35] VITALS: TEMP 98.7
[2018-07-27] MEDS: Potassium Ch 20mEq in D5-1/2NS 1,000 ML IV SCH (04:45)
[2018-07-27] MEDS: (Novolin R) Insulin Human Regular 100 units/ml vial SC SCH (08:16)
[2018-07-27 08:44] VITALS: BP 164/75; O2SAT 96
[2018-07-27 08:48] VITALS: PULSE 64
== END 2018-07-27 09:30 | disposition home or self-care (01) | DRG 155 ==
LOC: C.9S 06:05 → C.6T 14:42
PROVIDERS: ADMIT Surgery; ATTEND Surgery
PROC: 0BUT4KZ Supplement Diaphragm with Nonautologous Tissue Substitute, Percutaneous Endoscopic Approach (ICD-10-PCS; principal; 2018-07-19 07:30)
DX: K44.9 Diaphragmatic hernia without obstruction or gangrene (principal); Z98.84 Bariatric surgery status

== ENCOUNTER 2018-12-27 07:29 | Outpatient (CLI) | payer MEDICAID | END 2018-12-27 07:30 | disposition home or self-care (01) | LOC: C.CTH 07:29 | DX: R13.10 Dysphagia, unspecified (principal); R11.0 Nausea; Z98.84 Bariatric surgery status; Z87.19 Personal history of other diseases of the digestive system; Z71.3 Dietary counseling and surveillance ==

== ENCOUNTER 2019-01-11 13:29 | Outpatient (CLI) | payer MEDICAID | END 2019-01-11 13:30 | disposition home or self-care (01) | LOC: C.DIABED 13:30 | DX: Z71.3 Dietary counseling and surveillance (principal) ==

== ENCOUNTER 2019-02-03 12:41 | Outpatient (CLI) | payer MEDICAID | END 2019-02-03 12:42 | disposition home or self-care (01) | LOC: C.DIABED 12:41 ==